=== PATIENT | male | born 1980 | race African-American/Black ===

== ENCOUNTER 2017-05-28 21:58 | Emergency (ER) | payer BC ==
[2017-05-29] MEDS ORDERED: DEXAMETHASONE 4 MG TABLET PO ONE (00:42)
[2017-05-29] MEDS ORDERED: EPINEPHRINE INJ/PF 1 MG/1 ML AMPULE IM ONE (00:42)
[2017-05-29] MEDS ORDERED: LORATADINE 10 MG TABLET PO ONE (00:43)
--- NOTE | 2017-05-29 01:16 | ER Document Report ---
ED General - General Chief Complaint: Allergic Reaction Stated Complaint: SWOLLEN AREAS ON BODY Time Seen by Provider: 05/29/17 00:19 Notes: Patient is a 37-year-old male without past medical history who presents with 3 weeks of intermittent urticaria and an episode tonight in which he developed angioedema of his lower lip and right eye. Patient states while he has had scattered urticaria intermittently over the last 3 weeks he has never had facial swelling which prompted him to come to the emergency department to see he has tried Benadryl at home without any improvement of his symptoms. Nothing that he is aware of his triggering her symptoms or worsens them. He denies any history of similar symptoms prior to the past 1 month. He has not seen his primary doctor regarding today's concerns. He denies any difficulty breathing, swallowing, lightheadedness or syncope. TRAVEL OUTSIDE OF THE [place] IN LAST 30 DAYS: No Past Medical History - General Information source: Patient, Relative - Social History Smoking Status: Never Smoker Frequency of alcohol use: None Drug Abuse: None Lives with: Spouse/Significant other Family History: Reviewed & Not Pertinent Review of Systems - Review of Systems Notes: Constitutional: Negative for fever. HENT: Positive for lower lip swelling Eyes: Negative for visual changes. Cardiovascular: Negative for chest pain. Respiratory: Negative for shortness of breath. Gastrointestinal: Negative for abdominal pain, vomiting or diarrhea. Genitourinary: Negative for dysuria. Musculoskeletal: Negative for back pain. Skin: Positive for rash. Neurological: Negative for headaches, weakness or numbness. 10 point ROS negative except as marked above and in HPI. Physical Exam - Vital signs Vitals: Temp Pulse Resp BP Pulse Ox 98.4 F 73 17 122/85 95 05/28/17 22:38 05/28/17 22:38 05/28/17 22:38 05/28/17 22:38 05/28/17 22:38 Interpretation: Normal Notes: PHYSICAL EXAMINATION: GENERAL: Well-appearing, well-nourished and in no acute distress. HEAD: Atraumatic, normocephalic. EYES: Pupils equal round and reactive to light, extraocular movements intact, sclera anicteric, conjunctiva are normal. ENT: nares patent, oropharynx clear without exudates. Mild angioedema of the lower lip only. Oropharynx is otherwise patent without any evidence of edema in the posterior pharynx. Moist mucous membranes. NECK: Normal range of motion, supple without lymphadenopathy LUNGS: Breath sounds clear to auscultation bilaterally and equal. No wheezes rales or rhonchi. HEART: Regular rate and rhythm without murmurs ABDOMEN: Soft, nontender, normoactive bowel sounds. No guarding, no rebound. No masses appreciated. EXTREMITIES: Normal range of motion, no pitting or edema. No cyanosis. NEUROLOGICAL: No focal neurological deficits. Moves all extremities spontaneously and on command. PSYCH: Normal mood, normal affect. SKIN: Warm, Dry, normal turgor, scattered urticaria over the bilateral forearms , abdominal wall and chest wall Course - Re-evaluation Re-evalutation: 05/29/17 01:12 Patient presents with symptoms consistent with an allergic reaction without anaphylaxis. Only cutaneous involvement with multiple areas of hives. Vitals otherwise within normal limits at time of arrival. No respiratory, GI, cardiovascular, or oral pharyngeal symptoms. A trial of epinephrine for symptom resolution was offered to the patient. This did resolve the majority of the patient's hives. Will recommend ongoing antihistamine therapy as an outpatient. At this time will discharge with return precautions and follow-up recommendations. Verbal discharge instructions given a the bedside and opportunity for questions given. Medication warnings reviewed. Patient is in agreement with this plan and has verbalized understanding of return precautions and the need for primary care follow-up in the next 24-72 hours. - Vital Signs Vital signs: Temp Pulse Resp BP Pulse Ox 97.5 F 69 18 119/74 97 05/29/17 01:55 05/29/17 01:55 05/29/17 01:55 05/29/17 01:55 05/29/17 01:55 Discharge - Discharge Clinical Impression: Urticaria Allergic reaction Qualifiers: Encounter type: initial encounter Qualified Code(s): T78.40XA - Allergy, unspecified, initial encounter Angioedema of lips Qualifiers: Encounter type: initial encounter Qualified Code(s): T78.3XXA - Angioneurotic edema, initial encounter Condition: Good Disposition: HOME, SELF-CARE Additional Instructions: You were seen today for hives. This can be either allergic, autoimmune, or environmental in origin. You can continue to take cetirizine 10mg up to 3 times daily as needed for itching. IF YOU DEVELOP DIFFICULTY BREATHING, SPREADING OF HIVES, VOMITING, LIGHTHEADEDNESS, CALL 911. Please follow-up with your primary care physician in the next 1-2 days for consideration of allergy testing. Forms: Return to School
[2017-05-29 01:57] VITALS: BP 119/74
== END 2017-05-29 02:25 | disposition home or self-care (01) ==
LOC: ER 21:58
DX: T78.3XXA Angioneurotic edema, initial encounter (principal)
CPT/HCPCS: 99283; J0171

== ENCOUNTER 2019-09-29 22:31 | Emergency (ER) | payer SELFPAY ==
[2019-09-29] MEDS ORDERED: NORMAL SALINE 1000 ML 1,000 ML IV PRN (23:28)
--- NOTE | 2019-09-29 23:28 | ER Document Report ---
ED Medical Screen (RME) - General Chief Complaint: Chest Pain Stated Complaint: CHEST PAIN, PASSED OUT BEFORE ARRIVAL Time Seen by Provider: 09/29/19 23:27 Mode of Arrival: Ambulatory Information source: Patient Notes: This 39-year-old male presented to the emergency room today stating that he had chest pain and a syncopal episode prior to arrival associated with a lot of diaphoresis. TRAVEL OUTSIDE OF THE [place] IN LAST 30 DAYS: No - Related Data Allergies/Adverse Reactions: No Known Allergies Allergy (Unverified 09/29/19 23:23) Past Medical History - Social History Chew tobacco use (# tins/day): No Frequency of alcohol use: Occasional Drug Abuse: None Renal/ Medical History: Denies: Hx Peritoneal Dialysis Physical Exam - Vital signs Vitals: Temp Pulse Resp BP Pulse Ox 98.6 F 68 20 99/65 L 96 09/29/19 22:48 09/29/19 22:48 09/29/19 22:48 09/29/19 22:48 09/29/19 22:48 Course - Vital Signs Vital signs: Temp Pulse Resp BP Pulse Ox 98.6 F 68 20 99/65 L 96 09/29/19 23:22 09/29/19 22:48 09/29/19 22:48 09/29/19 22:48 09/29/19 22:48
--- NOTE | 2019-09-29 23:56 | RADIOLOGY REPORT (SQ) ---
EXAM DESCRIPTION: X-ray, single PA view the chest CLINICAL HISTORY: 39 years Male, pain sp fall COMPARISON: None. FINDINGS: Lungs: Lungs are clear. No pneumonia or edema. No pneumothorax or pleural effusion. Mediastinum: Cardiac and mediastinal silhouette are normal. Bones: Osseous structures are normal. No displaced fractures. IMPRESSION: Unremarkable single view the chest
[2019-09-30 00:23] LABS: ABSOLUTE LYMPHOCYTES (AUTO) 1.5 10^3/uL (0.5-4.7); ABSOLUTE MONOCYTES (AUTO) 0.6 10^3/uL (0.1-1.4); ABSOLUTE NEUT (AUTO) 9.6 10^3/uL (1.7-8.2); BASOPHILS % (AUTO) 0.4 % (0-2); EOSINOPHILS % (AUTO) 0.2 % (0-6); HEMATOCRIT 43.4 % (37.9-51.0); HEMOGLOBIN 14.5 g/dL (13.5-17.0); LYMPHOCYTES % (AUTO) 12.6 % (13-45); MEAN CORPUSCULAR HEMOGLOBIN 29.1 pg (27.0-33.4); MEAN CORPUSCULAR HGB CONC 33.3 g/dL (32.0-36.0); MEAN CORPUSCULAR VOLUME 87 fl (80-97); MONOCYTES % (AUTO) 4.9 % (3-13); PLATELET COUNT 307 10^3/uL (150-450); RED BLOOD COUNT 4.97 10^6/uL (4.35-5.55); RED CELL DISTRIBUTION WIDTH 13.5 % (11.5-14.0); SEGMENTED NEUTROPHILS % (AUTO) 81.9 % (42-78); TOTAL CELLS COUNTED % (AUTO) 100 %; WHITE BLOOD COUNT 11.8 10^3/uL (4.0-10.5)
[2019-09-30 00:25] LABS: APPEARANCE,URINE CLEAR; BILIRUBIN,URINE NEGATIVE (NEGATIVE); COLOR,URINE STRAW; GLUCOSE, URINE NEGATIVE (NEGATIVE); KETONES,URINE NEGATIVE (NEGATIVE); LEUKOCYTE ESTERASE,URINE NEGATIVE (NEGATIVE); NITRITE,URINE NEGATIVE (NEGATIVE); PROTEIN,URINE NEGATIVE (NEGATIVE); URINE SPECIFIC GRAVITY 1.002; UROBILINOGEN,URINE NEGATIVE mg/dL (<2.0)
[2019-09-30 00:38] LABS: URINE AMPHETAMINES SCREEN NEGATIVE; URINE BARBITURATES SCREEN NEGATIVE; URINE BENZODIAZEPINES SCREEN NEGATIVE; URINE COCAINE SCREEN NEGATIVE; URINE MARIJUANA (THC) SCREEN NEGATIVE; URINE METHADONE SCREEN NEGATIVE; URINE PHENCYCLIDINE SCREEN NEGATIVE
[2019-09-30 00:49] LABS: ALBUMIN 4.9 g/dL (3.5-5.0); ALKALINE PHOSPHATASE 69 U/L (38-126); ANION GAP 11 (5-19); ASPARTATE AMINO TRANSFERASE 24 U/L (17-59); BILIRUBIN,TOTAL 0.4 mg/dL (0.2-1.3); BLOOD UREA NITROGEN 10 mg/dL (7-20); CALCIUM 9.7 mg/dL (8.4-10.2); CARBON DIOXIDE 26 mmol/L (22-30); CHLORIDE 100 mmol/L (98-107); GLUCOSE 102 mg/dL (75-110); TOTAL PROTEIN 8.3 g/dL (6.3-8.2)
--- NOTE | 2019-09-30 01:31 | ER Document Report ---
ED General - General Chief Complaint: Chest Pain Stated Complaint: CHEST PAIN, PASSED OUT BEFORE ARRIVAL Time Seen by Provider: 09/29/19 23:27 Primary Care Provider: KATIE ENRIQUE MD [ACTIVE STAFF] - Follow up as needed Mode of Arrival: Ambulatory TRAVEL OUTSIDE OF THE [place] IN LAST 30 DAYS: No - HPI Notes: Patient is a 39-year-old male who presents to the emergency department for evaluation of near syncope and chest pain. The patient was out on his front porch, speaking with his daughter and . He had been standing for about 15 or 20 minutes. According to , he went down on one knee, became very diaphoretic, then was slowly lowered into a chair. He nearly passed out. He states he does not have a lot of memory of it. He was brought a drink, and then some Gatorade. He states his he was feeling more improved, he developed a ti ngling type sensation his lower chest, more than a chest pain, that lasted about 30 minutes. He denies any of this pain since then. He denies any current shortness of breath, nausea, diaphoresis, near syncope. On further questioning, the patient had woke in the morning at approximately 10:30 AM. This incident happened at 8 PM at night. He had not eaten anything. He had only taken in about 2 to 3 ounces of water since awaking. He states he "just did not think about it." - Related Data Allergies/Adverse Reactions: No Known Allergies Allergy (Unverified 09/29/19 23:23) Home Medications: None Past Medical History - General Information source: Patient - Social History Smoking Status: Current Every Day Smoker Chew tobacco use (# tins/day): No Frequency of alcohol use: Occasional Drug Abuse: None Family History: None, Reviewed & Not Pertinent Patient has homicidal ideation: No Renal/ Medical History: Denies: Hx Peritoneal Dialysis Review of Systems - Review of Systems Constitutional: See HPI Cardiovascular: See HPI -: Yes All other systems reviewed and negative Physical Exam - Vital signs Vitals: Temp Pulse Resp BP Pulse Ox 98.6 F 68 20 99/65 L 96 09/29/19 22:48 09/29/19 22:48 09/29/19 22:48 09/29/19 22:48 09/29/19 22:48 - Notes Notes: Vital signs reviewed, please refer to chart. Head is normocephalic, atraumatic. Pupils equal round, reactive to light. Neck is supple without meningismus. Heart is regular rate and rhythm. Lungs are clear to auscultation bilaterally. Abdomen is soft, nontender, normoactive bowel sounds throughout. Extremities without cyanosis, clubbing. Posterior calves are nontender. Peripheral pulses are equal. Skin is warm and dry. Patient is awake, alert, oriented x3. Cranial nerves II - XII are grossly intact without focal neurological deficits. Strength is plus 5 out of 5 bilateral upper and lower extremities. Sensation is intact. Reflexes symmetrical. Intact [id number], rapid alternating movements, [id number]. Course - Re-evaluation Re-evalutation: 09/30/19 01:28 Patient presents to the emergency department for evaluation. He was initially seen through triage and had orders as placed. Patient has a completely normal exam at this time. I suspect that this was secondary to dehydration as well as possible hypoglycemia. The patient is warned against such behaviors in the future. I also encouraged him to follow-up closely with primary care. His EKG shows what appears to be J-point elevation and diffuse ST changes, I suspect this is all because this is a younger -[place] male. He has no recent viral illness, his chest pain is atypical, he is not short of breath, I do not have a high suspicion for other etiology of these EKG changes. Patient is feeli ng back to baseline, states simply that he is hungry. I will get an discharge him to home. I will have him follow-up with primary care. He is to return to the emergency department with worsening or new concerning symptoms of any sort. - Vital Signs Vital signs: Temp Pulse Resp BP Pulse Ox 97.5 F 61 18 116/80 100 09/30/19 01:43 09/30/19 01:43 09/30/19 01:30 09/30/19 01:43 09/30/19 01:43 - Laboratory Result Diagrams: 09/29/19 23:57 09/29/19 23:57 Laboratory results interpreted by me: 09/29/19 09/29/19 09/30/19 23:57 23:57 00:12 WBC 11.8 H Lymph % (Auto) 12.6 L Absolute Neuts (auto) 9.6 H Seg Neutrophils % 81.9 H Sodium 136.9 L Total Protein 8.3 H Urine Blood SMALL H - Diagnostic Test Radiology reviewed: Reports reviewed Radiology results interpreted by me: 09/30/19 01:29 Chest X-Ray 09/29/19 23:28 IMPRESSION: Unremarkable single view the chest - EKG Interpretation by Me Additional EKG results interpreted by me: 09/30/19 01:29 Sinus mechanism with rate of 67 bpm. Normal axis and intervals. J-point and ST elevation likely secondary to early repolarization. There are no old studies available for comparison. Discharge - Discharge Clinical Impression: Near syncope Chest pain Qualifiers: Chest pain type: unspecified Qualified Code(s): R07.9 - Chest pain, unspecified Condition: Stable Disposition: HOME, SELF-CARE Instructions: Chest Pain of Unclear Cause ([facility]), Near Syncopal Episode ([facility]) Additional Instructions: This episode was likely secondary to not eating or drinking. Please be sure to take time to feel your body appropriately. You should follow-up with primary care next week. No other clear cause was found for your chest pain today. If you develop chest pain again, or you develop new or concerning symptoms of any sort, please return immediately to the emergency department for evaluation. Forms: Return to Work Referrals: KATIE ENRIQUE MD [ACTIVE STAFF] - Follow up as needed
[2019-09-30 01:49] VITALS: BP 116/80
--- NOTE | 2019-09-30 07:31 | EKG REPORT ---
SEVERITY:- BORDERLINE ECG - SINUS RHYTHM ST ELEVATION LIKELY NORMAL VARIANT : Confirmed by: Gerard Huff MD 30-Sep-2019 07:30:31
== END 2019-09-30 01:49 | disposition home or self-care (01) ==
LOC: ER 22:31
DX: R07.9 Chest pain, unspecified (principal); R55 Syncope and collapse; R20.2 Paresthesia of skin; F17.200 Nicotine dependence, unspecified, uncomplicated
CPT/HCPCS: 99285; 36415; 85025; 80053; 81001; 84484; 80307; 71045; 93005; 93010; J7030